=== PATIENT | male | born 1965 | race Caucasian/White ===

== ENCOUNTER 2019-09-27 11:55 | Emergency (ER) | payer SELFPAY | END 2019-09-27 16:45 | disposition home or self-care (01) | PROVIDERS: Emergency Provider Family Medicine; Family Provider Family Medicine; Visit Provider Family Medicine | DX: N43.3 Hydrocele, unspecified (principal); I86.1 Scrotal varices; N41.0 Acute prostatitis; N40.0 Benign prostatic hyperplasia without lower urinary tract symptoms; F17.220 Nicotine dependence, chewing tobacco, uncomplicated; E11.9 Type 2 diabetes mellitus without complications; I10 Essential (primary) hypertension | CPT/HCPCS: 36415; 74177; 76870; 80053; 81001; 85025; 99283; Q9967 ==

== ENCOUNTER → 2019-10-28 07:55 | Outpatient (BNVA) | payer SELFPAY | PROVIDERS: Family Provider Family Medicine; PCP Urology; Visit Provider Urology | DX: N41.9 Inflammatory disease of prostate, unspecified (principal); N40.1 Benign prostatic hyperplasia with lower urinary tract symptoms; R10.2 Pelvic and perineal pain; N13.8 Other obstructive and reflux uropathy; N50.812 Left testicular pain; N52.8 Other male erectile dysfunction | CPT/HCPCS: 81001 ==

== ENCOUNTER → 2019-11-30 15:58 | Outpatient (BNVA) | payer MEDICARE, SELFPAY | PROVIDERS: Family Provider Family Medicine; PCP Urology; Visit Provider Urology | DX: N40.0 Benign prostatic hyperplasia without lower urinary tract symptoms (principal); N50.812 Left testicular pain; N40.1 Benign prostatic hyperplasia with lower urinary tract symptoms | CPT/HCPCS: 81001; 84153 ==

== ENCOUNTER 2020-02-21 07:07 | Outpatient (CLI) | payer MEDICARE, SELFPAY ==
--- NOTE | 2020-02-21 07:15 | CT_ITS ---
WS: [id number] CT HEAD NONCONTRAST HISTORY: MEMORY loss, dizziness and AMNESIA TECHNIQUE: Contiguous axial imaging performed through the brain in 2.5 mm imaging. Bone and soft tiss ue windows. Sagittal and coronal reformats reviewed. All CT scans at [facility] use at le ast one of these dose optimization techniques: automated exposure control; mA and/or kV adjustment pe r patient size (includes targeted exams where dose is matched to clinical indication); or iterative r econstruction. DLP: 807.33 mGy.cm COMPARISON: 9 11/19/2010 No acute intracranial hemorrhage, midline shift or mass effect. No atrophy or prior infarcts or herniation. Ventricles: Normal size with no hydrocephalus. No inferior displacement of cerebellar tonsils. Clivus and pituitary gland are negative. Paranasal sinuses: As visualized are clear. Mastoid air cells: Well pneumatized. Calvarium and scalp: Skull is intact with no soft tissue edema or swelling. CT/CT head wo con* [id number] IMPRESSION: Stable noncontrast head CT. No interval change since 06/19/2011.
--- NOTE | 2020-02-21 07:17 | ECG_ITS ---
NAME OF STUDY: LEXISCAN SESTAMIBI STRESS TEST INDICATION: CHEST PAIN,DIZZINESS PROCEDURE: At the baseline, the blood pressure was 115/85 mmHg with a heart rate of 54 bpm. The electrocardiogram showed normal sinus rhythm, nonspecific ST depression. The Lexiscan was infused over a period of 20 seconds. A total of 0.4 milligrams of Lexiscan was infused. The stress phase was continued for a total of 5 minutes. Heart rate at the end of the stress phase was 75 bpm with a blood pressure 143/79 mmHg. The EKG at the peak infusion revealed sinus rhythm with no significant ST-T wave changes. Sestamibi was injected 20 seconds after the Lexiscan infusion. Blood pressure at the end of the recovery phase was 131/78 mmHg with a heart rate of 72 beats per minute. CONCLUSION: 1. No significant EKG changes with the LexiScan infusion. 2. No LexiScan induced chest pain or cardiac arrhythmia. 3. Normal blood pressure and heart rate response. 4. Sestamibi/sestamibi perfusion scan pending; see separate report. Electronically Signed On 02-21-2020 15:13:35 CDT by Olive Moran M.D. [id number]
--- NOTE | 2020-02-21 07:17 | NMCV_ITS ---
NM jerrod perf SPECT r/s* [id number] Ruthy Terrazas Age: 54 Gender: M : 1965 Exam Date: 02/21/2020 07:56 Ordering Phys: Enma Richard Technologist: MARA Dunham Exam Location: [facility] Indications: Chest pain, dizziness STRESS TEST Please see separate stress test report in [facility] for full findings IMAGE PROTOCOL Rest/Stress 1 Lexiscan Day Radiopharmaceutical Dose (mCi) Administration Site Administered by Rest: Tc-99m 11.0 IV Marlys Silvina, DIRECTOR HRIS Sestamibi Stress:Tc-99m 32.9 IV Marlys Silvina, DIRECTOR HRIS Sestamibi Rest: 60 Discovery 630 Stress: 45 Discovery 630 0.4mg Lexiscan. Images obtained in supine and prone position. SPECT RESULTS Technical Quality: Good Raw Data Analysis: Normal Image Corrections: No attenuation or motion correction applied Summed Stress Score: 2 Summed Rest Score: 7 Summed Difference Score: 0 PERFUSION FINDINGS Small sized perfusion abnormality of moderate severity of apical anterior, apical inferior, apical lateral and apical thomas on rest images. There is improved tracer uptake in apical anterior and apical inferior wall on stress images. FUNCTIONAL RESULTS (calculated via Gated SPECT) Stress Image LV EF (%): 52 Stress EDV (mL):116 TID: 1.08 Stress ESV (mL):56 FUNCTIONAL FINDINGS: The left ventricle is normal in size. Transient Ischemia Dilatation of 1.1. The left ventricular ejection fraction is low normal with a value of 52%. There is normal left ventricular wall thickening. IMPRESSIONS 1. Very small sized fixed perfusion abnormality of apical lateral and apical thomas. This likely represents attenuation artifact. 2. Small sized paradoxical perfusion abnormality of apical inferior and apical anterior wall represents attenuation artifact. 3. The left ventricular ejection fraction is low normal with a value of 52%. 4. There is normal left ventricular wall thickening. 5. No coronary ischemia based on the study. Olive Moran MD (Electronically Signed) Final Date: 22 Feb 2020 17:21 S
[2020-02-21 07:37] VITALS: BMI 38.7
[2020-02-21] MEDS: regadenoson 0.4 Mg/5 ml Syringe IVP (09:00)
[2020-02-21 09:15] VITALS: BP 173/78; PULSE 73
== END 2020-02-21 07:08 | disposition home or self-care (01) ==
PROVIDERS: Family Provider Family Medicine; PCP Urology; Visit Provider Nurse Practitioner Family
DX: R07.9 Chest pain, unspecified (principal); R42 Dizziness and giddiness; E78.5 Hyperlipidemia, unspecified
CPT/HCPCS: 70450; 78452; 93017; A9500; J2785

== ENCOUNTER 2020-02-24 09:05 | Outpatient (CLI) | payer MEDICARE, SELFPAY ==
--- NOTE | 2020-02-24 09:10 | USCV_ITS ---
Ruthy Terrazas Age: 54 Gender: M : 1965 Exam Date: 02/24/2020 09:07 Ordering Phys: Enma Richard CORPORATE ASSOCIATE ATTORNEY Technologist: Sandra May [place] [facility] [place]: dizziness Risk Factors: Previous Vascular Surgery: Right Brachial BP: / Left Brachial BP: / Right Left Velocity (cm/s) Spectral Plaque Velocity (cm/s) Spectral Plaque Syst/Diast Broadening Syst/Diast Broadening 87.10/ 19.80 Prox CCA 89.40 / 22.70 92.60/ 30.90 Mid CCA 56.50 / 15.70 87.10/ 27.60 Distal CCA 73.70 / 19.60 60.60/ 24.00 Prox ICA 41.80 / 18.60 65.90/ 33.40 Mid ICA 56.70 / 27.00 61.70/ 28.20 Distal ICA 70.60 / 35.30 89.90 ECA 105.00 0.71 ICA/CCA 1.25 Antegrade Vertebral Antegrade 29.30/ 9.80 cm/s 35.70/ 14.30 cm/s Tri Subclavian Tri 45.40 64.10 FINDINGS Comparison: none available. No significant elevation of systolic or diastolic velocities. Waveforms are normal. No significant amount of calcified plaque or intimal thickening identified. CONCLUSIONS No evidence of significant carotid artery stenosis. Dr. Mamta Gibson DO (Electronically Signed) Final Date: 24 Feb 2020 12:48 S
== END 2020-02-24 09:06 | disposition home or self-care (01) ==
LOC: RAD 09:05
PROVIDERS: PCP Nurse Practitioner Family; Visit Provider Nurse Practitioner Family
DX: R41.3 Other amnesia (principal); R42 Dizziness and giddiness
CPT/HCPCS: 93880

== ENCOUNTER 2020-12-10 16:58 | Emergency (ER) | payer MEDICARE, SELFPAY ==
[2020-12-10 17:03] VITALS: BP 193/105; PULSE 88; RESP 17; TEMP 36.7; O2SAT 96; BMI 39.0
[2020-12-10 17:13] VITALS: BP 193/105; PULSE 80; RESP 16; O2SAT 95
--- NOTE | 2020-12-10 17:13 | ED_ITS ---
HPI - Syncope General: Chief Complaint: Syncope Stated Complaint: syncope, headache Time Seen by Provider: 12/10/20 17:13 History of Present Illness: HPI narrative: Patient is a 55-year-old male comes to the ED with a headache and a syncopal episode. PMH of BPH, migraines, diabetes, hypertension and hyperlipidemia. Patient says that several hours ago he started developing a headache on the left side of head. He was also feeling nauseous as well. He went out to his garage and started feeling a little dizzy and he says he went down to the ground with his knee to rest. He then woke up on the ground and he still had a headache. Denies any presyncope chest pain or shortness of breath or diaphoresis. He was unaware of how long he had lost consciousness. He contacted his daughter on the phone to let her know and the family came out and checked on him. He says that after his syncopal episode he has felt weak and the left side of his face feels a little numb and his left leg feels little weak. Patient did say that he has had some history with lumbar radiculopathy to left leg and states that this could be due to that. His headache he rates it 9 out of 10 currently. Denies any facial pain, fevers, chills, chest pain, shortness of breath, abdominal pain, bladder or bowel incontinence, UTI symptoms. Associated symptoms: Reports headache(s); Deny abdominal pain, chest pain, fever(s) or nausea Review of Systems Const: Denies: fever(s), chills or fatigue Eyes: Denies: change in vision or eye discomfort ENMT: Denies: throat pain, odynophagia, nasal discharge or nasal congestion Card: Denies: chest pain, palpitations, edema, swelling of feet/ankles, dyspnea on exertion or orthopnea Resp: Denies: dyspnea, productive cough or non-productive cough GI: Denies: abdominal pain, nausea, vomiting, diarrhea, constipation or hematochezia : Denies: flank pain, difficulty urinating, dysuria or hematuria Musc: Denies: neck pain, back pain or extremity swelling Skin/Breast: Denies: rash or new lesions Neuro: Reports: headache(s), weakness in extremities (Left leg feels weak.) and sensory changes (Left side of face.); Denies: numbness in extremities PFSH ED PFSH: Medical History BPH loc w urin obs/LUTS Erectile dysfunction Suprapubic abdominal pain Testicular pain, left Surgical History History of back surgery Family History Father , 67 Cancer prostate, Stroke CAD (coronary artery disease) Social History Smoking and tobacco status: light tobacco smoker smokeless tobacco Alcohol intake: never Adopted: No Caregiver/support person: No Lives independently: No Household members: spouse Marital status: Current occupational status: employed and disabled History of recent travel: No Physical Exam Const: COMMON NORMALS: no acute distress, patient oriented x3 and alert GENERAL APPEARANCE: cooperative and comfortable HENMT: COMMON NORMALS: normocephalic HEAD & SCALP: normocephalic MOUTH: Normal oral and palatal mucosa present THROAT: posterior oropharynx normal and uvula midline Eye: COMMON NORMALS: Equal, round and reactive pupils present and EOMs intact bilaterally PUPIL: Yes Equal, round and reactive pupils present Neck/C-Spine: COMMON NORMALS: supple GENERAL: Yes normal visual inspection Resp: COMMON NORMALS: normal respiratory effort, No retractions, No use of accessory muscles and clear to auscultation bilaterally AUSCULTATION: clear to auscultation bilaterally Cardio: COMMON NORMALS: regular rate, regular rhythm, S1 normal heart sound present, S2 normal heart sound present, No gallops present (Cardio), No clicks present (Cardio), No murmurs present (Cardio) and Peripheral pulses 2+ throughout RATE: regular rate RHYTHM: regular rhythm HEART SOUNDS: S1 normal heart sound present and S2 normal heart sound present PERIPHERAL PULSES: Peripheral pulses 2+ throughout GI: COMMON NORMALS: Normal to inspection, nondistended, normoactive bowel sounds present, Soft to palpation, non-tender and no masses PALPATION: Yes Soft to palpation : COMMON NORMALS: Yes no CVA tenderness BLADDER/KIDNEY EXAM: Yes no CVA tenderness Back/Pelvis: COMMON NORMALS: no CVA tenderness Extremity: COMMON NORMALS: normal to inspection Neuro: COMMON NORMALS: patient oriented x3, CN's II-XII intact bilaterally, moves all extremities and no focal motor deficits SENSORIUM/ORIENTATION: Yes alert CRANIAL NERVES: Yes CN V (trigeminal) CN V laterality: left CN V left: all branch sensations abnormal COORDINATION/BALANCE: [id number] test normal SPEECH: speech normal MOTOR EXAM: 5/5 motor strength present throughout and Pronator motor function not present COORDINATION: fing er-to-nose test normal Skin: GENERAL SKIN EXAM: dry skin Course Reevaluation(s): Reevaluation #1: After patient received meds he said his headache has improved greatly and he now rates it around a 4-5 out of 10. Patient says he is ready to go home and rest. Time: 19:38 Vital Signs: Vital signs: Vital Signs Temperature 98.1 F 12/10/20 19:51 Pulse Rate 66 12/10/20 19:51 Respiratory Rate 17 12/10/20 19:51 Blood Pressure 146/79 12/10/20 19:51 Pulse Oximetry 98 12/10/20 19:51 MDM - Syncope MDM Narrative: Medical decision making narrative: Patient is a 55-year-old male comes to the ED with headache and syncopal episode. Denies any chest pain or shortness of breath pre and post syncope. Patient's complaining of having some left facial tingling. No other remarkable neuro exam findings seen. CBC and CMP were unremarkable. EKG showed normal sinus rhythm with no signs of of CA present. Troponin negative. CT of head showed no acute findings. Patient was given IV fluids, Toradol, Reglan and Decadron while here in the ED and his headache and other symptoms improved. Patient was diagnosed with syncope and headache. Discharged home and told to follow-up with PCP in 7 to 10 days for reevaluation. Return to ED precautions given. Patient understood and agreed with plan. Lab Data: Attestation: I reviewed the patient's lab results. Labs: Lab Results 12/10/20 12/10/20 12/10/20 Range/Units 18:00 18:00 18:00 WBC 7.4 (4.0-10.0) 10^3/ uL RBC 4.91 (4.1-5.3) 10^6/u L Hgb 14.1 (11.7-16.6) g/dL Hct 42.2 (42.0-52.0) % MCV 85.9 (80-94) fL MCH 28.7 (28.0-34.0) pg MCHC 33.4 (30.0-36.0) g/dL RDW 12.4 (12.1-15.1) % Plt Count 251 (130-400) 10^3/c mm MPV 10.2 (7.4-10.4) fL Neut % (Auto) 73.9 % Lymph % (Auto) 16.5 % [place] % (Auto) 7.8 % Eos % (Auto) 1.1 % Baso % (Auto) 0.4 % Neut # (Auto) 5.46 (1.8-7.7) 10^3/u L Lymph # (Auto) 1.2 (0.8-4.8) 10^3/u L [place] # (Auto) 0.6 (0.2-0.9) 10^3/u L Eos # (Auto) 0.1 (0.0-0.8) 10^3/u L Baso # (Auto) 0.0 (0.0-0.1) 10^3/u L Nucleated RBC % (a uto) 0 % Nucleated RBCs # 0.0 /100WBC Sodium 134 L (136-145) mmol/L Potassium 3.9 (3.5-5.1) mmol/L Chloride 98 (98-107) mmol/L Carbon Dioxide 25 (22-29) mmol/L Anion Gap 14.9 (5-19) BUN 12 (6-20) mg/dL Creatinine 0.8 (0.7-1.2) mg/dL GFR Calculation 101.1 (90-130) mL/min Glucose 183 H (65-115) mg/dL Calculated Osmolal ity 282 L (285-295) mOsm/k g Calcium 9.2 (8.5-10.5) mg/dL Total Bilirubin 0.5 (0.15-1.2) mg/dL AST 17 (0-40) U/L ALT 26 (0-41) U/L Alkaline Phosphata se 78 (40-130) IU/L Troponin T Baselin e 9 (0-15) ng/L Total Protein 7.4 (6.6-8.7) g/dL Albumin 4.1 (3.5-5.2) g/dL Globulin 3.3 (1.3-4.6) g/dL Imaging Data^: CT Head: Attestation: I personally reviewed and interpreted this imaging study as follows: Radiologist's impression: [facility] [place] [address] CT Scan Report Signed Patient: Ruthy Terrazas Unit #: [id number] : 1965 Age/Sex: 55 / M ADM Date: 12/10/20 Loc: ER Room/Bed: Attending Dr: Ordering Provider/Ordering MD: Trenton Ballard Date of Service: 12/10/20 Procedure(s): CT head wo con* [id number] Accession Number(s): [id number] Report Number: [id number] PROCEDURE INFORMATION: Exam: CT Head Without Contrast Exam date and time: 12/10/2020 5:24 PM Age: 55 years old Clinical indication: Numbness / parasthesia and other: Headache, syncope; Additional info: Syncope with headache TECHNIQUE: Imaging protocol: Computed tomography of the head without contrast. Radiation optimization: All CT scans at this facility use at least one of these dose optimization techniques: automated exposure control; mA and/or kV adjustment per patient size (includes targeted exams where dose is matched to clinical indication); or iterative reconstruction. COMPARISON: CT head wo con* [id number] 02/21/2020 7:31 AM RADIATION DOSE METRICS: Total DLP (mGy-cm): 987.84 FINDINGS: Brain: Normal. No hemorrhage. Unremarkable white matter. No mass effect. Cerebral ventricles: No ventriculomegaly. Bones/joints: Unremarkable. No acute fracture. Paranasal sinuses: Visualized sinuses are unremarkable. No fluid levels. Mastoid air cells: Visualized mastoid air cells are well aerated. Soft tissues: Unremarkable. CT/CT head wo con* [id number] IMPRESSION: 1. No acute intracranial abnormality. 2. No change from comparison 02/21/2020. Radiation Dose CTDIVOL = (mGy): DLP = 987.84 (mGy-cm) Dictated By: Reggie Joel Signed By: Reggie Joel Signed Date/Time: 12/10/201817 DD/ 16 EKG Data^: EKG 1: Attestation: I personally reviewed and interpreted this EKG as follows: EKG interpretation date: 12/10/20 Interpretation: Normal sinus rhythm, 71 bpm, no ST segment elevation or depression seen. Discharge Plan Discharge Patient Disposition: Home Clinical Impression: Headache Qualifiers: Headache type: unspecified Headache chronicity pattern: acute headache Intractability: not intractable Qualified Code(s): R51.9 - Headache, unspecified Syncope Qualifiers: Syncope type: vasovagal syncope Qualified Code(s): R55 - Syncope and collapse Condition: Stable Prescriptions: No Action metformin 1,000 mg tablet 1,000 mg PO BID@0900,2100 RF: 0 simvastatin 10 mg tablet 10 mg PO DAILY@2100 RF: 0 lisinopril-hydrochlorothiazide 20-25 mg tablet 0.5 tab PO DAILY@0900 RF: 0 levothyroxine 50 mcg capsule 50 mcg PO DAILY@0900 RF: 0 sildenafil 100 mg tablet 100 mg PO QDAY PRN (Reason: sexual activity) Qty: 25 RF: 12 citalopram 20 mg Tablet 20 mg PO DAILY@0900 RF: 0 Excedrin Migraine 250-250-65 mg Tablet 1 - 2 tab PO Q6H PRN (Reason: Pain) RF: 0 tamsulosin 0.4 mg capsule 0.4 mg PO BID@0900,2100 RF: 0 Discharge Orders: Discharge ED (Routine); Ordered 12/10/20 Ordered By: Trenton Ballard Referrals: Enma Richard FNP [Primary Care Provider] - Discharge Diet: Regular Discharge Activity: Increase activity as tolerated Patient Instructions: Syncope (ED), Acute Headache (ED) Activity Restrictions/Additional Instructions: Follow-up with medical provider as directed in 5 to 7 days for reevaluation. Continue taking all home medications as prescribed. Return to the ER or your medical provider if condition worsens. Please read and understand discharge instructions. If any questions, please ask. Coding Level of Care Code ED Gun Stock Checker for Mariza Fwd Exam Comprehensive
--- NOTE | 2020-12-10 17:15 | XR_ITS ---
WS: [id number] XR chest 1V portable [id number] REASON FOR EXAM: syncope FINDINGS: The chest is unchanged compared to 11/02/2013. The heart and mediastinum are within normal limits. Calcified granulomatous changes in both hemithoraces. No active pulmonary parenchymal or pleural dise ase. Moderate changes of degenerative spondylosis in the mid and lower thoracic spine. XR/XR chest 1V portable [id number] IMPRESSION: No acute chest abnormality.
--- NOTE | 2020-12-10 17:15 | ECG_ITS ---
[facility] Test Date: 2020-12-10 Pat Name: Ruthy Terrazas Department: Room: Gender: Male Screening Technician: : 1965 Requested By: Trenton Ballard Order Number: [id number] Odell MD: Camryn Zabala M.D. Measurements Intervals [place] Rate: 71 P: 38 WA: 168 QRS: 3 QRSD: 89 T: -7 QT: 365 QTc: 399 Interpretive Statements SINUS RHYTHM No previous ECG available for comparison Electronically Signed On 12-11-2020 0:01:54 CDT by Camryn Zabala M.D. [id number]
[2020-12-10 18:03] VITALS: BP 139/80; PULSE 76; RESP 16; O2SAT 97
[2020-12-10 18:18] LABS: Basophils % 0.4 %; Eosinophils # 0.1 10^3/uL (0.0-0.8); Eosinophils % 1.1 %; Hematocrit 42.2 % (42.0-52.0); Hemoglobin 14.1 g/dL (11.7-16.6); Lymphocytes # 1.2 10^3/uL (0.8-4.8); Lymphocytes % 16.5 %; Mean Corpuscular HGB Conc 33.4 g/dL (30.0-36.0); Mean Corpuscular Hemoglobin 28.7 pg (28.0-34.0); Mean Corpuscular Volume 85.9 fL (80-94); Mean Platelet Volume 10.2 fL (7.4-10.4); Monocytes # 0.6 10^3/uL (0.2-0.9); Monocytes % 7.8 %; Neutrophils # 5.46 10^3/uL (1.8-7.7); Neutrophils % 73.9 %; Nucleated Red Blood Cells % 0 %; Platelet Count 251 10^3/cmm (130-400); Red Blood Count 4.91 10^6/uL (4.1-5.3); Red Cell Distribution Width 12.4 % (12.1-15.1); White Blood Count 7.4 10^3/uL (4.0-10.0)
[2020-12-10 18:36] LABS: Alanine Aminotransferase 26 U/L (0-41); Albumin Level 4.1 g/dL (3.5-5.2); Alkaline Phosphatase 78 IU/L (40-130); Anion Gap 14.9 (5-19); Aspartate Amino Transferase 17 U/L (0-40); Blood Urea Nitrogen 12 mg/dL (6-20); Calcium 9.2 mg/dL (8.5-10.5); Carbon Dioxide 25 mmol/L (22-29); Chloride 98 mmol/L (98-107); Globulin 3.3 g/dL (1.3-4.6); Glomerular Filtration Rate 101.1 mL/min (90-130); Glucose 183 mg/dL (65-115); Osmolality Calculated 282 mOsm/kg (285-295); Potassium 3.9 mmol/L (3.5-5.1); Sodium 134 mmol/L (136-145); Total Bilirubin 0.5 mg/dL (0.15-1.2); Total Protein 7.4 g/dL (6.6-8.7)
[2020-12-10 18:37] LABS: Troponin(5th) Baseline 9 ng/L (0-15)
[2020-12-10] MEDS: sodium chloride 0.9% 500 ML 999 ML IV (18:45)
[2020-12-10] MEDS: metoclopramide 5 mg/mL SDV 2 mL 10 MG IVP (18:47)
[2020-12-10] MEDS: dexamethasone 4 mg/mL INJ 8 MG IVP (18:48)
[2020-12-10] MEDS: ketorolac 30 mg/mL INJ IVP (18:49)
[2020-12-10 18:51] VITALS: BP 162/85; PULSE 77; RESP 16; O2SAT 96
[2020-12-10 19:51] VITALS: BP 146/79; PULSE 66; RESP 17; TEMP 36.7; O2SAT 98
== END 2020-12-10 19:52 | disposition home or self-care (01) ==
PROVIDERS: Emergency Provider Physician Assistant; PCP Nurse Practitioner Family
DX: R55 Syncope and collapse (principal); R51.9 Headache, unspecified; F17.210 Nicotine dependence, cigarettes, uncomplicated
CPT/HCPCS: 70450; 71045; 80053; 84484; 85025; 93005; 96374; 96375; 99284; J1100; J1885; J2765; J7040

== ENCOUNTER 2023-01-28 20:00 | Outpatient (CLI) | payer MEDICARE, SELFPAY | END 2023-01-28 20:01 | disposition home or self-care (01) | LOC: SLEEP 01-29 06:35 | PROVIDERS: PCP Nurse Practitioner Family; Visit Provider Nurse Practitioner Family | DX: G47.33 Obstructive sleep apnea (adult) (pediatric) (principal); R53.83 Other fatigue; R06.83 Snoring | CPT/HCPCS: 95810 ==